=== PATIENT | male | born 1965 | race Caucasian/White ===

== ENCOUNTER 2017-08-07 17:42 | Emergency (ER) | payer OTHER ==
[~2017-08-07] VITALS: Ht 185.4 cm; Wt 90.1 kg
[2017-08-07 19:05] LABS: HEMATOCRIT 41.6 % (38.0-50.0); HEMOGLOBIN 14.6 G/DL (12.5-16.6); MCHC 35.1 G/DL (30.0-36.0); MCV 88.3 FL (86-99); PLATELET COUNT 196 K/uL (156-360); RBC DIS.WIDTH-CV 12.4 % (11.8-14.6); RED BLOOD COUNT 4.71 M/uL (4.00-5.50); WHITE BLOOD COUNT 4.4 K/uL (4.1-10.2)
[2017-08-07 19:17] LABS: ALBUMIN 4.1 g/dL (3.2-4.8); CHLORIDE 102 mEq/L (99-109); POTASSIUM 4.3 mEq/L (3.7-5.4); SODIUM 138 mEq/L (136-147)
[2017-08-07 19:20] LABS: GLUCOSE 98 mg/dL (70-99)
[2017-08-07 19:21] LABS: TOTAL BILIRUBIN 0.3 mg/dL (0.0-1.0)
[2017-08-07 19:23] LABS: ALKALINE PHOSPHATASE 75 IU/L (3-129); CREATININE 1.1 mg/dL (0.6-1.3); GFR ESTIMATE (CALCULATED) > 59 mL/min/ (58.99-99999)
[2017-08-07 19:24] LABS: UREA NITROGEN (BUN) 19 mg/dL (9-23)
[2017-08-07 19:25] LABS: AST (GOT) 19 IU/L (2-34)
[2017-08-07 19:26] LABS: ALT (GPT) 17 IU/L (3-49)
[2017-08-07 19:27] LABS: LIPASE 22 U/L (1.0-51.0)
[2017-08-07 19:53] VITALS: BP 154/72
== END 2017-08-07 19:54 | disposition home or self-care (01) ==
LOC: EME 17:42
PROVIDERS: Physician Assistant
DX: K43.9 Ventral hernia without obstruction or gangrene (principal); K21.9 Gastro-esophageal reflux disease without esophagitis; J30.2 Other seasonal allergic rhinitis; Z72.0 Tobacco use
CPT/HCPCS: 80053; 83690; 85027; 99281; 99285